=== PATIENT | male | born 1960 | race African-American/Black ===

== ENCOUNTER 2021-01-09 10:41 | Emergency (ER) | payer OTHER ==
[2021-01-09 20:55] LABS: SARS-CoV-2 PCR by NAA Not Detected (NotDetected)
== END 2021-01-09 11:30 | disposition home or self-care (01) ==
LOC: NAV ERS 10:41
DX: J34.89 Other specified disorders of nose and nasal sinuses (principal); R50.9 Fever, unspecified; R11.10 Vomiting, unspecified; Z20.822 Contact with and (suspected) exposure to COVID-19; I10 Essential (primary) hypertension
CPT/HCPCS: 99283; U0003; U0005

== ENCOUNTER → 2021-09-29 | Emergency (ER) | payer OTHER ==
[~2021-09-29] MED LIST: Aspirin 300 MG Suppository ONE; Fentanyl 100 MCG/2 ML VIAL ONE; Furosemide 40 MG/4 ML VIAL ONE; Midazolam HCl 5 mg/ml Vial ONE; Nitroglycerin 50 MG/250 ML BOT 250 ML ONE; Sodium Chloride 0.9% 100 ML ONE
[2021-09-29 04:09] LABS: #Basophils 0.1 thou/uL (0.0-0.2); #Eosinphils 0.1 thou/uL (0.0-0.7); #Lymphocytes 4.9 thou/uL (1.20-3.40); #Neutrophils 6.7 thou/uL (1.40-6.50); %Basophils 1.2 % (0.0-1.0); %Eosinophils 0.8 % (0.0-10.0); %Lymphocytes 38.3 % (21.0-51.0); %Monocytes 7.7 % (0.0-10.0); Hemoglobin 13.6 g/dL (14.0-18.0); Mean Corpuscular HGB CONC 28.9 g/dL (32.0-36.0); Mean Corpuscular Hemoglobin 25.7 pg (27.0-31.0); Mean Platelet Volume 8.8 fL (7.4-10.4); Platelet Count 356 thou/uL (130-400); RBC Distribution Width 14.6 % (11.5-14.5); Red Blood Cell (RBC) Count 5.28 mill/uL (4.70-6.10); White Blood Cell (WBC) Count 12.8 thou/uL (4.8-10.8)
[2021-09-29 04:20] LABS: ALT (SGPT) 45 U/L (8-55); AST (SGOT) 60 U/L (5-34); Albumin 3.5 g/dL (3.4-4.8); Alkaline Phosphatase 156 U/L (40-110); Anion Gap 20 mmol/L (10-20); BUN (Urea Nitrogen) 32 mg/dL (8.4-25.7); Bilirubin, Total 0.5 mg/dL (0.2-1.2); Calc. Creatinine Clearance 0 mL/min (70-130); Calcium 9.1 mg/dL (7.8-10.44); Carbon Dioxide 20 mmol/L (23-31); Chloride 102 mmol/L (98-107); Glucose 175 mg/dL (80-115); Magnesium 2.2 mg/dL (1.6-2.6); Potassium 3.9 mmol/L (3.5-5.1); Protein, Total 8.5 g/dL (5.8-8.1); Sodium 138 mmol/L (136-145)
[2021-09-29 04:43] LABS: CKMB 2.7 ng/mL (0-6.6)
== END ==
LOC: NAV ERS 03:54
DX: R06.89 Other abnormalities of breathing (principal); I16.0 Hypertensive urgency; R09.02 Hypoxemia; J81.1 Chronic pulmonary edema; R77.8 Other specified abnormalities of plasma proteins; I10 Essential (primary) hypertension
CPT/HCPCS: 31500; 36415; 71045; 80053; 82553; 83735; 83880; 84484; 85025; 93005; 94760; 96365; 96374; 96375; J1940; J2250; J3010